=== PATIENT | female | born 1955 | race Caucasian/White ===

== ENCOUNTER 2018-02-07 07:51 | Inpatient (IN) | payer MEDICAID ==
[~2018-02-07] VITALS: Ht 167.6 cm; Wt 99.8 kg
--- NOTE | ~2018-02-07 | OP ---
PATIENT NAME: JOSE MANN MEDICAL RECORD: [id number] :57 LOCATION:D.[facility] [place] ADMISSION DATE:02/07/18 SURGEON: GOLDY WOOD MD DATE OF OPERATION: 02/09/2018 PREOPERATIVE DIAGNOSIS: Multiple symptomatic incisional hernias. POSTOPERATIVE DIAGNOSES: Multiple symptomatic incarcerated incisional hernias with inability to close the midline fascia without employing the bilateral component separation technique. PROCEDURE: Open complex incarcerated incisional hernia repairs with Parietex optimized composite mesh 25 x 20 cm utilizing the bilateral component separation technique. The myofascial release on the left side was 18.5 cm in length and the myofascial release on the right was 22.0 cm in length. SURGEON: GOLDY WOOD MD LIBERAL ARTS DEAN: None. BLOOD LOSS: 200 cc. ANESTHESIA: General. COMPLICATIONS: None. The risks, possible complications and alternatives to procedure were explained to the patient. She elects to proceed. The discussion specifically included, but was not limited to, bleeding requiring an emergency reoperation, infection, reherniation as well as intestinal injury. OPERATIVE COURSE: The patient was conveyed to the operating room electively on 02/09/2018. General anesthesia was induced by the anesthesia staff. The abdomen was sterilely prepped and draped. A midline incision was accomplished. I dissected down to the midline fascia. The peritoneal cavity was entered sharply. Adhesions in the abdomen were taken down with sharp dissection. I ligated the falciform ligament with metallic clips and divided it. I took down the anterior portion of the triangular ligament of the liver. I ensured that all the adhesions in the abdomen had been released. I ran the small bowel from the ligament of Treitz to the ileocecal valve and there was no evidence of a full thickness bowel injury. I excised some attenuated fascia sharply. Subcutaneous flaps were created on top of the rectus fascia on both sides. There was one large hernia defect on the right. I excised the sac. I then closed the fascial defect with multiple interrupted horizontal mattress #1 surgidacs. I tried to approximate the fascia in the midline, I was unable to do so. I went around to the right side and between the anterior superior iliac spine and the right costal margin, a parasagittal incision was accomplished. I dissected down to the external oblique musculature. Utilizing the electrocautery, this was incised in cephalad and caudad direction. I then did perform some blunt dissection deep to the muscle and fascia in cephalad caudad anterior/posterior dimensions. After doing this, I tried to approximate the fascia in the midline and it would not approximate easily. Therefore, I went around to the left side and performed a OPERATIVE REPORT [id number] SEVERENCE,JOSE component separation technique there. As one component separation technique could not allow for closure of the fascia in the midline, the bilateral component separation technique was therefore indicated. Like I did on the right side on the left side, a parasagittal incision was accomplished between the anterior superior iliac spine and the left costal margin. I dissected down to the external oblique aponeurosis and muscle. The muscle was divided. This myofascial release was performed with the electrocautery and the length of the myofascial release is listed above. Again, some blunt dissection was performed in cephalad caudad anterior and posterior directions. After performing a bilateral component separation technique, I was able to approximate the fascia in the midline without tension. A Parietex mesh was then brought onto the sterile field. It was placed in the abdominal cavity with the slick side toward the bowels and the rough side toward the anterior abdominal wall. Utilizing the SecureStrap tacker, I tacked this skirted mesh to the overlying fascia. I ensured that the bowel was not injured and was not trapped between the mesh and the anterior abdominal wall. The fascial closure in the midline was performed over the mesh and this consisted of running looped #1 PDS in a horizontal mattress running fashion. I then overran this fascial closure with a #1 Vicryl. A 19-Korean closed suction drain was brought out through a stab incision lateral to the main incision. In the midline, the subdermis was approximated with interrupted 3-0 Vicryls. Gaye were used deep for the cutaneous closure, all 3 incision sites. The drain was sutured to skin with a 2-0 nylon. Sterile dressings were applied. The patient was then extubated and conveyed to post-anesthesia care unit where she was in stable condition. TRANSINT:[id number] Voice Confirmation ID: [id number] DOCUMENT ID: [id number] CC: Dr. Kimmy Mendoza GOLDY WOOD MD at 1158 CC: DR KIMMY MENDOZA [phone] DICTATION DATE: 02/09/18 1836 TIRE MOLD TESTER: 02/09/18 2144 DIS IN 02/14/18 [address] [place] [address]
[2018-02-07 08:23] LABS: BASOPHILS 0.5 % (0-2); HEMATOCRIT 39.4 % (36.0-48.0); HEMOGLOBIN 13.6 g/dL (12-16); IMMATURE GRANULOCYTES 0.3 % (0-5); LYMPHOCYTES 25.7 % (15-50); MCH 30.2 pg (26.0-34.0); MCHC 34.5 g/dL (31.0-37.0); MCV 87.4 fL (80.0-100.0); MEAN PLATELET VOLUME 11.7 fL (7.4-10.4); MONOCYTES 8.3 % (2-11); NEUTROPHILS 63.2 % (40-80); PLATELET COUNT 216 10x3/uL (130-400); RBC 4.51 10x6/uL (4.00-5.40); RDW 13.9 % (11.5-14.5); WBC 7.5 10x3/uL (4.8-10.8)
[2018-02-07 08:33] LABS: UDS - AMPHET NEGATIVE QUAL (NEGATIVE); UDS - BARB NEGATIVE QUAL (NEGATIVE); UDS - BENZO NEGATIVE QUAL (NEGATIVE); UDS - COCAINE NEGATIVE QUAL (NEGATIVE); UDS - OPIATE NEGATIVE QUAL (NEGATIVE); UDS - PCP NEGATIVE QUAL (NEGATIVE); UDS - THC NEGATIVE QUAL (NEGATIVE)
[2018-02-07 08:41] LABS: ALBUMIN 3.9 g/dL (3.4-5.0); ALKALINE PHOSPHATASE 74 U/L (46-116); ALT (SGPT) 18 U/L (10-68); BILIRUBIN - TOTAL 0.29 mg/dL (0.2-1.3); CALC OSMOLALITY 283 mosm/kg (275-300); CALCIUM 9.1 mg/dL (8.5-10.1); CHLORIDE - SERUM 104 mmol/L (98-107); CREATININE - SERUM 1.1 mg/dL (0.6-1.3); GLUCOSE 101 mg/dL (74-106); POTASSIUM - SERUM 4.3 mmol/L (3.5-5.1); PROTEIN - SERUM 7.8 g/dL (6.4-8.2); SODIUM 141 mmol/L (136-145); UREA NITROGEN 22 mg/dL (7-18); eGFR NON AFRICAN AMERICAN 53 mL/min (90-120)
[2018-02-07 08:46] LABS: APPEARANCE CLEAR (CLEAR); BILIRUBIN NEGATIVE (NEGATIVE); COLOR YELLOW (YELLOW); GLUCOSE NEGATIVE (NEGATIVE); KETONE NEGATIVE (NEGATIVE); NITRITE NEGATIVE (NEGATIVE); PROTEIN 1+ mg/dL (NEGATIVE); UROBILINOGEN NORMAL (NORMAL)
[2018-02-07 08:47] LABS: BACTERIA MODERATE /hpf (NONE SEEN); EPITHELIAL CELLS 0-5 /hpf (0-5); RED CELLS - URINE 0-5 /hpf (0-5); WHITE CELLS - URINE 0-5 /hpf (0-5)
[2018-02-07 08:49] LABS: LIPASE 197 U/L (73-393); PRO BNP 40 pg/mL (0-125)
[2018-02-07 08:50] LABS: TROPONIN-I < 0.017 ng/mL (0.000-0.060)
[2018-02-07] MEDS ORDERED: LISINOPRIL-HCTZ1 T13 PO (12:25)
[2018-02-07] MEDS ORDERED: ZOCOR40 MG PO (12:26)
[2018-02-07 13:19] VITALS: BP 140/88
[2018-02-07 18:06] VITALS: BP 134/85
[2018-02-07 21:53] VITALS: BP 145/79
[2018-02-08 02:51] VITALS: BP 135/91
[2018-02-08 04:58] LABS: BASOPHILS 0.6 % (0-2); EOSINOPHILS 1.5 % (0-7); HEMATOCRIT 35.2 % (36.0-48.0); HEMOGLOBIN 11.7 g/dL (12-16); IMMATURE GRANULOCYTES 0.1 % (0-5); LYMPHOCYTES 26.3 % (15-50); MCH 29.4 pg (26.0-34.0); MCHC 33.2 g/dL (31.0-37.0); MCV 88.4 fL (80.0-100.0); MEAN PLATELET VOLUME 11.5 fL (7.4-10.4); MONOCYTES 6.3 % (2-11); NEUTROPHILS 65.2 % (40-80); PLATELET COUNT 184 10x3/uL (130-400); RBC 3.98 10x6/uL (4.00-5.40); WBC 6.8 10x3/uL (4.8-10.8)
[2018-02-08 05:22] LABS: ALBUMIN 3.1 g/dL (3.4-5.0); ANION GAP 12.8 mmol/L (8-16); BILIRUBIN - TOTAL 0.26 mg/dL (0.2-1.3); CALCIUM 8.4 mg/dL (8.5-10.1); CARBON DIOXIDE 25.3 mmol/L (21.0-32.0); MAGNESIUM - SERUM 2.4 mg/dL (1.8-2.4); POTASSIUM - SERUM 4.1 mmol/L (3.5-5.1); PROTEIN - SERUM 6.4 g/dL (6.4-8.2)
[2018-02-08 08:24] VITALS: BP 139/80
[2018-02-08 12:06] VITALS: BP 140/79
[2018-02-08 16:10] VITALS: BP 128/72
[2018-02-08 21:02] VITALS: BP 167/79
[2018-02-09 01:39] VITALS: BP 163/75
[2018-02-09 06:33] VITALS: BP 128/77
[2018-02-09 09:07] VITALS: BP 108/71
[2018-02-09 12:35] VITALS: BP 115/69
[2018-02-09 19:33] VITALS: BP 108/61
[2018-02-09 21:19] VITALS: BP 94/49
[2018-02-10 00:41] VITALS: BP 95/54
[2018-02-10 04:31] LABS: BASOPHILS 0.1 % (0-2); EOSINOPHILS 0 % (0-7); HEMATOCRIT 32.8 % (36.0-48.0); HEMOGLOBIN 11.1 g/dL (12-16); IMMATURE GRANULOCYTES 0.3 % (0-5); LYMPHOCYTES 8.6 % (15-50); MCH 29.4 pg (26.0-34.0); MCHC 33.8 g/dL (31.0-37.0); MONOCYTES 5.3 % (2-11); NEUTROPHILS 85.7 % (40-80); PLATELET COUNT 180 10x3/uL (130-400); RBC 3.77 10x6/uL (4.00-5.40); RDW 13.6 % (11.5-14.5)
[2018-02-10 04:39] LABS: WBC 10.5 10x3/uL (4.8-10.8)
[2018-02-10 05:01] VITALS: BP 80/42
[2018-02-10 05:25] LABS: ALBUMIN 2.6 g/dL (3.4-5.0); ANION GAP 13.9 mmol/L (8-16); BILIRUBIN - TOTAL 0.42 mg/dL (0.2-1.3); CALCIUM 8.1 mg/dL (8.5-10.1); CREATININE - SERUM 1.1 mg/dL (0.6-1.3); PHOSPHOROUS 4.7 mg/dL (2.5-4.9); POTASSIUM - SERUM 3.9 mmol/L (3.5-5.1); PROTEIN - SERUM 5.6 g/dL (6.4-8.2)
[2018-02-10 05:26] LABS: MAGNESIUM - SERUM 1.7 mg/dL (1.8-2.4)
[2018-02-10 10:27] VITALS: BP 84/45
[2018-02-10 15:27] VITALS: Ht 167.6 cm; Wt 99.8 kg
[2018-02-10 18:18] VITALS: BP 115/64
[2018-02-10 20:44] VITALS: BP 128/68
[2018-02-11] VITALS (7 sets, daily range): BP systolic 101–148; BP diastolic 58–82
[2018-02-12 01:06] VITALS: BP 154/85
[2018-02-12 04:47] VITALS: BP 164/84
[2018-02-12 08:52] VITALS: BP 154/83
[2018-02-12 12:21] VITALS: BP 139/76
[2018-02-12 15:50] VITALS: BP 152/74
[2018-02-12 20:32] VITALS: BP 132/77
[2018-02-13 00:56] VITALS: BP 138/78
[2018-02-13 04:44] VITALS: BP 163/74
[2018-02-13 05:31] LABS: BASOPHILS 0.3 % (0-2); HEMATOCRIT 28.2 % (36.0-48.0); HEMOGLOBIN 9.6 g/dL (12-16); IMMATURE GRANULOCYTES 0.3 % (0-5); LYMPHOCYTES 17.6 % (15-50); MCH 29.4 pg (26.0-34.0); MCV 86.5 fL (80.0-100.0); MEAN PLATELET VOLUME 11.4 fL (7.4-10.4); MONOCYTES 8.3 % (2-11); NEUTROPHILS 69.5 % (40-80); PLATELET COUNT 177 10x3/uL (130-400); RBC 3.26 10x6/uL (4.00-5.40); RDW 13.3 % (11.5-14.5); WBC 7.7 10x3/uL (4.8-10.8)
[2018-02-13 05:54] LABS: ANION GAP 12.9 mmol/L (8-16); CALCIUM 8.2 mg/dL (8.5-10.1); CARBON DIOXIDE 26.3 mmol/L (21.0-32.0); CREATININE - SERUM 0.9 mg/dL (0.6-1.3); POTASSIUM - SERUM 3.2 mmol/L (3.5-5.1)
[2018-02-13 12:43] VITALS: BP 142/80
[2018-02-13] MEDS ORDERED: MIRALAX17 GM PO (13:15)
[2018-02-13] MEDS ORDERED: HYDROCODON-ACE1 EAC7 PO (13:15)
[2018-02-13 16:34] VITALS: BP 146/86
[2018-02-13 20:43] VITALS: BP 163/84
[2018-02-14 01:20] VITALS: BP 95/66
[2018-02-14 09:09] VITALS: BP 168/81
[2018-02-14 12:30] VITALS: BP 122/65
[2018-02-14 15:58] VITALS: BP 131/74
== END 2018-02-14 17:31 | disposition home health service (06) | DRG 355 ==
LOC: D.ER 07:51 → D.EDHOLD 10:41 → D.MS 10:41
PROVIDERS: Family Medicine; Surgery
PROC: 0KNL0ZZ Release Left Abdomen Muscle, Open Approach (ICD-10-PCS; 2018-02-09)
PROC: 0KNK0ZZ Release Right Abdomen Muscle, Open Approach (ICD-10-PCS; 2018-02-09)
PROC: 0WUF0JZ Supplement Abdominal Wall with Synthetic Substitute, Open Approach (ICD-10-PCS; principal; 2018-02-09 11:30)
DX: K43.0 Incisional hernia with obstruction, without gangrene (principal); I10 Essential (primary) hypertension; Z87.891 Personal history of nicotine dependence

== ENCOUNTER 2018-11-20 19:29 | Observation (INO) | payer MEDICAID ==
[~2018-11-20] VITALS: Ht 167.6 cm; Wt 98.2 kg
--- NOTE | ~2018-11-20 | HEMODYNAMI ---
PATIENT:JOSE PAIGE MEDICAL RECORD: [id number] : 57 [id number] ADMISSION DATE: 11/20/18 Generatedon:11/23/20189:28 Patient name: JOSE PAIGE Patient #: [id number] SSN: : 1955 Date of study: 11/23/2018 Page: Of Hemodynamic Procedure Report Patient Data Patient Demographics Procedure consent was obtained First Name: JOSE Gender: Female Last Name: GRECIA : 1955 Patient #: [id number] Age: 63 year(s) Race: Unknown Additional ID: [id number] Contact details [address]: [address] [place] [address] [address] State: [place] City: [facility] Zip code: [address] Admission Admission Data Admission Date: 11/20/2018 Admission Time: 22:42 Room #: D.2118 Lab Results Lab Result Date: 11/23/2018 Lab Result Time: 0:00 Biochemistry Name Units Result Min Max BUN mg/dl 20 --(----)*- 7 18 Creatinine mg/dl 0.8 --(-*--)-- 0.6 1.3 CBC Name Units Result Min Max Hemoglobin g/dl 14.9 --(-*--)-- 13.5 17.5 Procedure Procedure Types Cath Procedure Diagnostic Procedure [facility] w/Coronaries Sedation Charges Moderate Sedation up to 15 minutes PCI Procedure Coronary Stent Coronary Stent Initial Procedure Description Procedure Date Procedure Date: 11/23/2018 Procedure Start Time: 9:04 Procedure End Time: 9:27 Procedure Staff Name Function Paul Gibson MD Performing Physician Lulu Tomlin RT Monitor Duyen Steele RT Scrub Jose Medel RN Nurse Procedure Data Cath Procedure Fluoroscopy Diagnostic fluoroscopy Total fluoroscopy Time: 6.6 time: 6.6 min min Diagnostic fluoroscopy Total fluoroscopy dose: dose: 1255 mGy 1255 mGy Contrast Material Contrast Material Type Amount (ml) Isovue 300 86 Entry Location Entry Primary Successful Side Size Upsize Upsize Entry Closure Rivera ccessful Closure Location (Fr) 1 (Fr) 2 (Fr) Remarks Device Remarks Radial Right 6 Fr Mechanical artery Short Compression Estimated blood loss: 5 ml Diagnostic catheters Device Type Used For End Catheter Placement DIAGNOSTIC [place] 110cm 5 Multi-vessel Fr catheter ([id number]) Angiography Procedure Complications No complications Procedure Medications Medication Administration Route Dosage 0.9% NaCl I.V. 100 ml/hr Versed I.V. 2 mg Fentanyl I.V. 100 mcg Oxygen etCO2 Nasal cannula Radial Cocktail added to field 1 syringe (Verapomil 2mg/Nitro 400mcg/Heparin 1500units) Radial Cocktail I.A. 1 syringe (Verapomil 2mg/Nitro 400mcg/Heparin 1500units) Heparin Flush Bag added to field 2 bags (1000units/500ml NS) Lidocaine 2% added to field 20 Heparin Bolus I.V. 9800 units Plavix P.O. 600 mg Hemodynamics Rest HGB: 14.9 (g/dl) Heart Rate: 69 (bpm) Pressure Samples Time Site Value (mmHg) Purpose Heart Use Rate(bpm) 9:08 LV 140/7,20 Snapshot 79 9:09 AO 101/63(80) Pullback 78 9:09 LV 125/2,13 Pullback 78 Gradients Valve Time Site 1 Site 2 Mean SEP/DFP Peak To Heart Use (mmHg) (sec/min) Peak Rate (mmHg) (bpm) Aortic 9:09 LV AO 18 23 24 78 125/2,13 101/63(80) Calculations Valve P-P Mean Valve Index Valve Source Name Gradient Area Flow (cm2) Aortic 24 18 24 18 Snapshots Pre Cath Intra NCS Post Cath Vital Signs Time Heart Resp SPO2 etCO2 NIBP (mmHg) Rhythm Pain Sedation Rate (ipm) (%) (mmHg) Status Level (bpm) 8:54:07 71 10 92 0 156/101(135) NSR 0 (11) 10(A) , No pain 8:58:21 71 16 91 0 165/97(140) NSR 0 (11) 10(A) , No pain 9:02:40 77 14 92 0 164/108(141) NSR 0 (11) 10(A) , No pain 9:06:56 78 13 92 35 126/86(102) NSR 0 (11) 10(A) , No pain 9:11:04 72 17 93 29.1 120/83(112) NSR 0 (11) 9(A) , No pain 9:15:11 70 18 92 20.1 124/76(106) NSR 0 (11) 9(A) , No pain 9:19:21 64 16 92 38 121/74(116) NSR 0 (11) 9(A) , No pain 9:23:29 69 18 91 0 126/77(99) NSR 0 (11) 9(A) , No pain 9:27:41 70 9 92 23.8 127/71(106) NSR 0 (11) 9(A) , No pain Medications Time Medication Route Dose Verified Delivered Reason Note s Effectiveness by by 9:05:02 0.9% NaCl I.V. 100 Jose Jose Per physician ml/hr Lizy Medel RN RN 9:05:14 Versed I.V. 2 mg Jose Jose for sedation Lizy Medel RN RN 9:05:22 Fentanyl I.V. 100 mcg Jose Jose for sedation Lizy Medel RN RN 9:05:32 Oxygen etCO2 Jose Jose Per physician Nasal Lizy Medel cannula RN RN 9:07:21 Radial Cocktail added 1 Jose Jose used for (Verapomil to syringe Lorigan Lorigan procedure 2mg/Nitro RN RN 400mcg/Heparin 1500units) 9:07:27 Radial Cocktail I.A. 1 Jose Paul for (Verapomil syringe Lizy Gibson MD vasodilation 2mg/Nitro RN 400mcg/Heparin 1500units) 9:08:02 Heparin Flush added 2 bags Jose Jose used for Bag to Lorigan Lorvanesa procedure (1000units/500ml RN RN NS) 9:08:13 Lidocaine 2% added 20ml Jose Jose for local to vial Lorigan Lizy anesthetic RN RN 9:19:14 Heparin Bolus I.V. 9,800 Jose Jose for units Lorigan Lizy anticoagulation RN RN 9:26:25 Plavix P.O. 600 mg Jose Jose for Lorigan Lizy antiplatelet RN RN therapy Procedure Log Time Note 7:35:16 Informed consent obtained and on chart 7:35:23 Diagnostic Cath Status : Elective 7:35:53 Elissa Saxena RN sent for patient. Start room use. 7:35:54 Time tracking: Regular hours (M-F 7:00 - 5:00) 7:35:58 Plan of Care:Hemodynamics will remain stable., Cardiac rhythm will remain stable., Comfort level will be maintained., Respiratory function will remain adequate., Patient/ family verbilizes understanding of procedure., Procedure tolerated without complication., Recovers from procedure without complications.. 8:51:37 Patient received from Med II to CCL 2 Alert and oriented. Tansferred to table in Supine position. 8:53:05 Warm blankets applied, and makayla hugger turned on for patient comfort. 8:53:05 Correct patient and procedure confirmed by team. 8:53:06 ECG and BP/O2 sat monitors applied to patient. 8:53:07 Vital chart was started 8:53:08 Baseline sample Acquired. 8:53:12 Rhythm: sinus rhythm 8:53:14 Full Disclosure recording started 8:53:22 H&P Date Dictated: 11/23/2018 New H&P dictated by physician.. 8:53:24 Pre-procedure instructions explained to patient. 8:53:24 Pre-op teaching completed and patient verbalized understanding. 8:53:25 Family in waiting room. 8:53:26 Patient NPO since Midnight. 8:53:28 Is the patient allergic to Iodine/contrast media? No. 8:53:29 Was the patient premedicated? No 8:53:33 Is patient on blood thinner?No 8:53:34 Patient diabetic? No. 8:53:49 Previous problem with sedation/anesthesia? No ? 8:53:51 Snore? Yes 8:53:52 Sleep apnea? No 8:53:53 Deviated septum? No 8:53:54 Opens mouth fully? Yes 8:53:54 Sticks out tongue? Yes 8:53:56 Airway obstruction? No ? 8:53:59 Dentures? No ? 8:54:02 Pre procedure: right dorsailis pedis pulse 1+ Palpable, but thready & weak; easily obliterated 8:54:04 Pre procedure: left dorsailis pedis pulse 1+ Palpable, but thready & weak; easily obliterated 8:54:08 Patient pain scale 0/10 ?. 8:54:25 IV right forearm D/C'd due to infiltration. 8:57:40 IV started by Jose Medel RN inleft forearm with a 20 gauge IV catheter with 0.9% NaCl at KVO. 8:57:43 Lab results completed and on chart. 8:57:47 Right Radial & Right Groin area was prepped with chlora-prep and draped in sterile fashion 8:57:48 Alarms reviewed by R. N. 8:57:48 Sharps counted by scrub and verified by R.N. 8:58:33 Lab Result : Hemoglobin 14.9 g/dl 8:58:33 Lab Result : Creatinine 0.8 mg/dl 8:58:33 Lab Result : BUN 20 mg/dl 9:04:14 Physician arrived 9:04:14 --------ALL STOP TIME OUT------ 9:04:15 Final Timeout: patient, procedure, and site verified with staff and physician. All members of the team are in agreement. 9:04:16 Right Radial & Right Groin site verified by team. 9:04:19 Physical assessment completed. ASA score P 2 - A patient with mild systemic disease as per Paul Gibson MD. 9:04:24 Sedation plan: IV Moderate Sedation Medication:Versed, Fentanyl 9:04:29 Procedure started. 9:04:35 Local anesthetic to right radial artery with Lidocaine 2% by Paul Gibson MD.INITIAL ACCESS ONLY 9:04:37 Use device set Radial Dx or PCI 9:04:38 ACIST Syringe (03219) opened to sterile field. 9:04:39 Medline Cath Pack ([id number]) opened to sterile field. 9:04:39 Bag Decanter () opened to sterile field. 9:04:39 DIAGNOSTIC WIRE .035 260cm J wire (401650) opened to sterile field. 9:04:40 ACIST Hand Control (08442) opened to sterile field. 9:04:40 ACIST Manifold (53328) opened to sterile field. 9:04:41 Tegaderm 4 x 4 (1626W) opened to sterile field. 9:04:41 MBrace Wrist Support ([id number]) opened to sterile field. 9:04:43 SHEATH 6FR Slender (25-0908) opened to sterile field. 9:04:43 NEEDLE Cook 21G 4cm Radial (L31211) opened to sterile field. 9:05:02 0.9% NaCl 100 ml/hr I.V. was administered by Jose Medel RN; Per physician; 9:05:14 Versed 2 mg I.V. was administered by Jose Medel RN; for sedation; 9:05:22 Fentanyl 100 mcg I.V. was administered by Jose Medel RN; for sedation; 9:05:32 Oxygen etCO2 Nasal cannula was administered by Jose Medel RN; Per physician; 9:05:59 A 6 Fr Short sheath was inserted into the Right Radial artery 9:06:33 A DIAGNOSTIC [place] 110cm 5 Fr catheter (626136) was advanced over the wire and used for Multi-vessel Angiography. 9:07:16 Zero performed for pressure channel P1 9:07:21 Radial Cocktail (Verapomil 2mg/Nitro 400mcg/Heparin 1500units) 1 syringe added to field was administered by Jose Medel RN; used for procedure; 9:07:26 Zero performed for pressure channel P1 9:07:27 Radial Cocktail (Verapomil 2mg/Nitro 400mcg/Heparin 1500units) 1 syringe I.A. was administered by Paul Gibson MD; for vasodilation; 9:07:45 Zero performed for pressure channel P1 9:07:51 Zero performed for pressure channel P1 9:08:02 Heparin Flush Bag (1000units/500ml NS) 2 bags added to field was administered by Jose Medel RN; used for procedure; 9:08:13 Lidocaine 2% 20ml vial added to field was administered by Jose Medel RN; for local anesthetic; 9:08:23 Zero performed for pressure channel P1 9:08:54 LV hemodynamics recorded. 9:08:55 LV gram done using BOYD 9:08:57 Injector settings: Ml/sec: 5, Volume: 15, 9:09:11 EF : 50 % 9:10:11 LCA angiography performed. 9:10:17 Injector settings: Ml/sec: 3, Volume: 6, 9:11:15 RCA angiography performed. 9:11:18 Injector settings: Ml/sec: 3, Volume: 6, 9:12:43 Catheter removed. 9:12:44 Proceeding to intervention. 9:13:07 INFLATOR Merit BasixCompak (TQ8110) opened to sterile field. 9:13:08 GUIDE 6FR XBLAD 3.5 catheter ([id number]) opened to sterile field. 9:13:09 BMW 300cm [place] 2 J wire ([id number]) opened to sterile field. 9:13:28 6 Fr xblad 3.5 guide catheter was inserted over the wire 9:19:14 Heparin Bolus 9,800 units I.V. was administered by Jose Medel RN; for anticoagulation; 9:: bmw wire advanced. 9::28 Wire advanced across lesion. 9:24:21 Place stent Inflation Number: 1 A INTEGRITY OTW 3.5 X 15 stent ([id number]) was prepped and advanced across the Prox CX. The stent was deployed at 12 DANNIE for 0:10 (min:sec). 9:24:56 Stent catheter was removed intact over wire. 9:24:57 Wire removed. 9:24:57 Guide catheter removed. 9:25:36 TR BAND Standard ([id number]) opened to sterile field. 9:25:47 Sheath removed intact; hemostasis achieved with Mechanical Compression to the Right Radial artery. 9:25:49 Procedure ended.(Physican Out) 9:26:20 Fluoroscopy time 06.60 minutes. 9:26:24 Flurop Dose total: 1255 9:26:24 Fluoroscopy dose: 1255 mGy 9:26:25 Plavix 600 mg P.O. was administered by Jose Medel RN; for antiplatelet therapy; 9::28 Contrast amount:Isovue 300 86ml. 9:26:30 Sharps counted by scrub and verified by R.N. 9:26:32 TR band inflated with 10cc of air. 9:26:33 Insertion/operative site no bleeding no hematoma. 9:26:38 Post right radial artery:stable 9:26:42 Post procedure rhythm: unchanged. 9:26:45 Estimated blood loss: 5 ml 9::47 Post procedure instruction explained to patient.Patient verbalizes understanding. 9::47 Patient needs reinforcement of post procedure teaching. 9:26:58 Procedure type changed to Cath procedure, Diagnostic procedure, LHC, LHC w/Coronaries, Sedation Charges, Moderate Sedation up to 15 minutes, PCI procedure, Coronary Stent, Coronary Stent Initial 9:26:59 Procedure and supply charges have been captured, reviewed, submitted and are correct. 9:27:03 Procedure Complication : No complications 9:27:07 Vital chart was stopped 9:27:08 See physician's report for complete and final results. 9:27:27 Report given to [facility]. 9:27:30 Patient transfered to [facility] with Stretcher. 9:27:32 Procedure ended. 9:27:32 Full Disclosure recording stopped 9:27:41 ACC-PCI Only Patient was given prescriptions, or instructed by Paul Gibson MD to start/continue the following medications upon discharge: Plavix 9:27:42 End room use (Document Last) Intervention Summary Intervention Notes Time ActionType Lesion and Equipment Action# Pressure Duration Attributes Used 9:24:21 Place stent Prox CX INTEGRITY 1 12 00:10 OTW 3.5 X 15 stent ([id number]) Device Usage Item Name Manufacture Quantity Catalog Hospital Part Current Minimal Lot# / Number Charge Number Stock Stock Serial# Code ACIST Acist 1 37091 875011 172808 447675 20 Syringe Medical (55505) Systems Inc Medline Medline 1 [id number] 754608 29716 991086 5 Cath Pack ([id number]) Bag Microtek 1 2001S 765196 51294 823257 5 Decanter Medical Inc. () DIAGNOSTIC St [place] 1 634398 126005 636126 192857 30 WIRE .035 260cm J wire (613145) ACIST Hand Acist 1 74781 373046 784165 018852 5 Control Medical (43063) Systems Inc ACIST Acist 1 76630 209481 886101 739397 5 Manifold Medical (14160) Systems Inc Tegaderm 4 3M 1 1626W 905257 060650 474043 5 x 4 (1626W) MBrace Advanced 1 140-0250-00 596022 46668 240854 5 Wrist Vascular Support Dynamics ([id number]) SHEATH 6FR Terumo 1 [id number] 701156 359124 568181 5 Slender (80-1060) NEEDLE Clearwell Systems Medical 1 F58696 127236 809824 376334 5 21G 4cm Radial (W83740) DIAGNOSTIC Terumo 1 40-0983 110356 011764 101218 5 [place] 110cm 5 Fr catheter (648059) INFLATOR Merit 1 CM2098 904196 923734 909070 15 [facility] Medical BasixCompak (QD6091) GUIDE 6FR Cardinal 1 [id number] 117101 955166 000590 10 XBLAD 3.5 Health catheter (50697801) BMW 300cm Springer 1 [id number] 721482 160590 451201 5 [place] 2 Vascular J wire (2646522Q) INTEGRITY Medtronic 1 [id number] 077406 099550 911515 6 [id number] OTW 3.5 X 15 stent ([id number]) TR BAND Terumo 1 [id number] 829687 759599 071211 40 Standard ([id number]) Signature Audit [place] Stage Time Signature Unsigned Intra-Procedure 11/23/2018 Duyen Cedric 9:28:46 AM RT(R) Signatures Monitor : Lulu Tomlin Signature : RT Date : Time : [place] [id number] [place] [address]
[~2018-11-20 19:29] MED LIST: HYDROCODON-ACE1 EAC7 PO; LISINOPRIL-HCTZ1 T13 PO; MIRALAX17 GM PO; ZOCOR40 MG PO
[2018-11-20 20:22] LABS: BASOPHILS 0.3 % (0-2); HEMATOCRIT 45.1 % (36.0-48.0); HEMOGLOBIN 15.9 g/dL (12-16); IMMATURE GRANULOCYTES 0.3 % (0-5); LYMPHOCYTES 17.2 % (15-50); MCH 30.9 pg (26.0-34.0); MCHC 35.3 g/dL (31.0-37.0); MCV 87.6 fL (80.0-100.0); MEAN PLATELET VOLUME 10.9 fL (7.4-10.4); MONOCYTES 5.7 % (2-11); NEUTROPHILS 75.5 % (40-80); PLATELET COUNT 178 10x3/uL (130-400); RBC 5.15 10x6/uL (4.00-5.40); RDW 14.9 % (11.5-14.5); WBC 11.8 10x3/uL (4.8-10.8)
[2018-11-20 20:26] LABS: APTT 29.8 SECONDS (22.8-39.4); PROTIME 12.7 SECONDS (11.6-15.0)
[2018-11-20 20:39] LABS: ALBUMIN 3.6 g/dL (3.4-5.0); ALKALINE PHOSPHATASE 70 U/L (46-116); ALT (SGPT) 20 U/L (10-68); BILIRUBIN - TOTAL 0.24 mg/dL (0.2-1.3); CALC OSMOLALITY 286 mosm/kg (275-300); CARBON DIOXIDE 24.2 mmol/L (21.0-32.0); CHLORIDE - SERUM 103 mmol/L (98-107); CREATININE - SERUM 1.1 mg/dL (0.6-1.3); GLUCOSE 130 mg/dL (74-106); POTASSIUM - SERUM 3.2 mmol/L (3.5-5.1); PROTEIN - SERUM 7.3 g/dL (6.4-8.2); SODIUM 140 mmol/L (136-145); UREA NITROGEN 28 mg/dL (7-18); eGFR NON AFRICAN AMERICAN 53 mL/min (90-120)
[2018-11-20 21:00] LABS: CREATINE KINASE 117 UL (21-215); MAGNESIUM - SERUM 2.1 mg/dL (1.8-2.4); TROPONIN-I < 0.017 ng/mL (0.000-0.060)
--- NOTE | 2018-11-20 23:41 | NUR ---
PT ARRIVED VIA W/C FROM ER WITH DX. CP. NO DISTRESS NOTED. SR PER CM HR 99. INFORMED PT NPO AFTER MIDNIGHT UNTIL SEEN BY DR CHISHOLM IN AM. PT STATED UNDERSTANDING. SANDWICH GIVEN TO PT. CALL LIGHT WITHIN REACH.
[2018-11-20 23:56] VITALS: BP 157/82; Ht 167.6 cm; Wt 98.2 kg
--- NOTE | 2018-11-21 00:11 | NUR ---
ADMISSION ASSESSMENT, HISTORY AND HOME MED LIST COMPLETED. VSS. IV TO LAC SL. LUNGS CTA. HAS C/O PAIN 2/10 TO L ARM AND NECK THAT HAS INTERMITTENT SQUEEZING. WILL CONTINUE TO MONITOR. SR UP X2, CALL LIGHT WITHIN REACH.
[2018-11-21 00:38] VITALS: BP 157/82
--- NOTE | 2018-11-21 01:42 | NUR ---
PT RESTING WITH EYES CLOSED. RESP EVEN AND REGULAR. SR UP X2, CALL LIGHT WITHIN REACH.
--- NOTE | 2018-11-21 04:19 | NUR ---
PT RESTING WITH EYES CLOSED. RESP EVEN AND REGULAR. SR UP X2, CALL LIGHT WITHIN REACH.
[2018-11-21 04:29] VITALS: BP 133/82
--- NOTE | 2018-11-21 05:59 | NUR ---
VSS. SR PER CM. PT CURRENTLY RESTING WITH EYES CLOSED. RESP EVEN AND REGULAR. SR UP X2, CALL LIGHT WITHIN REACH.
--- NOTE | 2018-11-21 07:30 | NUR ---
RESTING QUIETLY EYES CLOSED RESP UNLABORED NAD NOTED
[2018-11-21 08:40] VITALS: BP 220/110
[2018-11-21 10:50] VITALS: BP 136/77
[2018-11-21 21:32] VITALS: BP 134/71
--- NOTE | 2018-11-21 21:51 | NUR ---
INITIAL ORUNDS COMPELTED AT 1910 HRS. PT STATED HER HIPS WERE BOTHERING HER. STATED NAPROXEN HELPED SOME. ASSESSMENT COMPLETED AT 1999 HRS. VSS. LUNGS CTA. SR PER CM HR 82. IV TO LAC REMOVED WITH CATHETER INTACT PER PT'S INSISTANCE. REFUSES ANOTHER IV. ALERT AND ORIENTEDE TO PERSON, PLACE AND TIME. GAIT EVEN AND STEADY. PM MED GIVEN. PT CURRENTLY RESTING WITH EYES CLOSED. RESP EVEN AND REGULAR. SR UP X2,CALL LIGHT WITHIN REACH.
[2018-11-21 23:55] VITALS: BP 129/70
--- NOTE | 2018-11-22 00:08 | NUR ---
PT RESTING WITH EYES CLOSED. RESP EVEN AND REGULAR. SR UP X2, CALL LIGHT WITHIN REACH.
--- NOTE | 2018-11-22 02:12 | NUR ---
PT RESTING WITH EYES CLOSED. RESP EVEN AND REGULAR. SR UP X2, CALL LIGHT WITHIN REACH .
[2018-11-22 03:55] VITALS: BP 144/73
--- NOTE | 2018-11-22 04:59 | NUR ---
PT AWAKE; DENIES ANY DISCOMFORT. CALL LIGHT WITHIN REACH.
--- NOTE | 2018-11-22 05:39 | NUR ---
VSS THROUGHOUT NIGHT. SR PER CM. PT DENIED ANY CP OR PRESSURE. NEEDS MET; WILL CONTINUE TO MONITOR.
[2018-11-22 07:13] LABS: BASOPHILS 0.4 % (0-2); EOSINOPHILS 1.7 % (0-7); HEMATOCRIT 42.9 % (36.0-48.0); HEMOGLOBIN 14.9 g/dL (12-16); IMMATURE GRANULOCYTES 0.4 % (0-5); LYMPHOCYTES 22.3 % (15-50); MCH 30.3 pg (26.0-34.0); MCHC 34.7 g/dL (31.0-37.0); MCV 87.2 fL (80.0-100.0); MEAN PLATELET VOLUME 11.3 fL (7.4-10.4); MONOCYTES 7.7 % (2-11); NEUTROPHILS 67.5 % (40-80); PLATELET COUNT 188 10x3/uL (130-400); RBC 4.92 10x6/uL (4.00-5.40); RDW 14.7 % (11.5-14.5); WBC 11.1 10x3/uL (4.8-10.8)
[2018-11-22 07:41] LABS: ALBUMIN 3.2 g/dL (3.4-5.0); ALKALINE PHOSPHATASE 61 U/L (46-116); ALT (SGPT) 17 U/L (10-68); CALC OSMOLALITY 280 mosm/kg (275-300); CALCIUM 8.4 mg/dL (8.5-10.1); CARBON DIOXIDE 22.6 mmol/L (21.0-32.0); CHLORIDE - SERUM 104 mmol/L (98-107); CREATININE - SERUM 0.8 mg/dL (0.6-1.3); GLUCOSE 98 mg/dL (74-106); MAGNESIUM - SERUM 2.1 mg/dL (1.8-2.4); POTASSIUM - SERUM 3.9 mmol/L (3.5-5.1); PROTEIN - SERUM 6.6 g/dL (6.4-8.2); SODIUM 139 mmol/L (136-145); THYROID STIMULATING HORMONE 2.49 uIU/mL (0.36-3.74); UREA NITROGEN 20 mg/dL (7-18); eGFR NON AFRICAN AMERICAN 77 mL/min (90-120)
--- NOTE | 2018-11-22 08:22 | NUR ---
PT UP IN RECLINER EATING BREAKFAST. NO CONCERNS/COMPLAINTS. OK WITH GOING HOME TODAY BUT NEEDS TO KNOW EARLY POSSIBLE IF SO. STATE HER RIDE IS BIPOLAR? NOT SURE WHAT THAT HAS TO DO WITH IT BUT APARENTLY IT'S RELEVANT. CL IN REACH. SRX2
[2018-11-22 09:40] VITALS: BP 160/105
--- NOTE | 2018-11-22 10:40 | NUR ---
RESTING QUIETLY NAD NOTED SR RATE 90 ON MONITOR
[2018-11-22 14:30] VITALS: BP 143/95
[2018-11-22 17:53] VITALS: BP 146/85
--- NOTE | 2018-11-22 18:04 | NUR ---
PT LYING IN BED WATCHING TV. NO CCONERNSOR COMPLAINTS AT THIS TIME. CL IN REACH. SRX2.
[2018-11-22 20:00] VITALS: BP 162/78
--- NOTE | 2018-11-22 20:00 | NUR ---
INITIAL ROUNDS AND ASSESSMENT COMPLETED. PT REGAN BE NPO AFTER MIDNIGHT FOR AM HEART CATH. ALERT/ORIENTED. MONITOR AND CPOC.
--- NOTE | 2018-11-22 23:00 | NUR ---
BED TIME MEDS GIVEN. PT RESTING WITH NO DISTRESS.
[2018-11-23] VITALS: BP 152/86
--- NOTE | 2018-11-23 01:04 | NUR ---
PT NPO. ALL FLUIDS/DRINKS REMOVED FROM BEDSIDE.
[2018-11-23 04:00] VITALS: BP 173/88
[2018-11-23 06:24] LABS: BASOPHILS 0.4 % (0-2); EOSINOPHILS 2.1 % (0-7); HEMATOCRIT 44.9 % (36.0-48.0); HEMOGLOBIN 15.6 g/dL (12-16); IMMATURE GRANULOCYTES 0.4 % (0-5); LYMPHOCYTES 25.2 % (15-50); MCH 30.3 pg (26.0-34.0); MCHC 34.7 g/dL (31.0-37.0); MCV 87.2 fL (80.0-100.0); MEAN PLATELET VOLUME 11.3 fL (7.4-10.4); MONOCYTES 7.1 % (2-11); NEUTROPHILS 64.8 % (40-80); PLATELET COUNT 190 10x3/uL (130-400); RBC 5.15 10x6/uL (4.00-5.40); RDW 14.5 % (11.5-14.5); WBC 9.5 10x3/uL (4.8-10.8)
[2018-11-23 06:59] LABS: ALBUMIN 3.3 g/dL (3.4-5.0); ANION GAP 15.5 mmol/L (8-16); BILIRUBIN - TOTAL 0.45 mg/dL (0.2-1.3); CALCIUM 8.7 mg/dL (8.5-10.1); CARBON DIOXIDE 24.6 mmol/L (21.0-32.0); MAGNESIUM - SERUM 2.2 mg/dL (1.8-2.4); POTASSIUM - SERUM 4.1 mmol/L (3.5-5.1)
[2018-11-23 08:37] VITALS: BP 140/80
--- NOTE | 2018-11-23 08:41 | NUR ---
PRE-OPS GIVEN. TO SINGLE PASS SOIL STABILIZER OPERATOR BY BED.
--- NOTE | 2018-11-23 09:51 | NUR ---
BACK FROM GROUND EQUIPMENT MECHANIC. VS WNL. RIGHT WRIST STABLE WITH TR BAND INTACT. WILL MONITOR.
[2018-11-23 11:28] VITALS: BP 133/81
[2018-11-23 15:43] VITALS: BP 144/85
--- NOTE | 2018-11-23 19:37 | NUR ---
RESUMED CARE OF PT, LYING IN BED RESPIRATIONS EVEN AND UNLABORED ON ROOM AIR. 82 SR ON TELEMETRY. LEFT FOREARM SALINE LOCKED. RIGHT WRIST, C/D/I. SEE NURSE ASSESSMENT. CALL LIGHT IN REACH.
[2018-11-23 20:00] VITALS: BP 131/60
[2018-11-24] VITALS: BP 141/88
[2018-11-24 04:00] VITALS: BP 126/82
[2018-11-24 05:30] LABS: BASOPHILS 0.4 % (0-2); EOSINOPHILS 2.6 % (0-7); HEMATOCRIT 43.8 % (36.0-48.0); IMMATURE GRANULOCYTES 0.4 % (0-5); LYMPHOCYTES 18.6 % (15-50); MCH 29.9 pg (26.0-34.0); MCHC 34.2 g/dL (31.0-37.0); MCV 87.3 fL (80.0-100.0); MEAN PLATELET VOLUME 10.5 fL (7.4-10.4); MONOCYTES 7.6 % (2-11); NEUTROPHILS 70.4 % (40-80); PLATELET COUNT 182 10x3/uL (130-400); RBC 5.02 10x6/uL (4.00-5.40); RDW 14.3 % (11.5-14.5); WBC 9.5 10x3/uL (4.8-10.8)
[2018-11-24 06:01] LABS: ALBUMIN 3.1 g/dL (3.4-5.0); ANION GAP 14.1 mmol/L (8-16); BILIRUBIN - TOTAL 0.41 mg/dL (0.2-1.3); CALCIUM 8.6 mg/dL (8.5-10.1); CARBON DIOXIDE 23.8 mmol/L (21.0-32.0); MAGNESIUM - SERUM 2.1 mg/dL (1.8-2.4); POTASSIUM - SERUM 3.9 mmol/L (3.5-5.1); PROTEIN - SERUM 6.5 g/dL (6.4-8.2)
[2018-11-24 08:00] VITALS: BP 140/85
[2018-11-24] MEDS ORDERED: PLAVIX75 MG PO (08:13)
[2018-11-24] MEDS ORDERED: LISINOPRIL10 MG PO (08:13)
[2018-11-24] MEDS ORDERED: PROTONIX40 MG PO (08:13)
[2018-11-24 12:06] VITALS: BP 140/46
--- NOTE | 2018-11-24 12:21 | NUR ---
IV AND TELEMETRY DCD. DC PLANS GIVEN. UNDERSTANDING VOICED. ASSISTANT KITCHEN MANAGER TO ASSIST WITH CHANGING PHARMACYS AND DILIP FROM DR. RIVERA OFFICE TO ASSIST WITH SAMPLES OF [place]. WILL CONT. PLAN OF CARE.
--- NOTE | 2018-11-24 12:42 | NUR ---
WILL MACHINIST APPRENTICE PLAVIX AT PHARMACY IN . DILIP NOTIFIED NOT TUCKERCARY TO BRING EDIN PEGGYPALMIRA. ESCORTED TO CAR BY W/C.
--- NOTE | 2018-11-24 15:14 | MORECARE ---
CASE MANAGEMENT DISCHARGE SUMMARY PATIENT: JOSE PAIGE UNIT: [id number] ADM DATE: 11/20/18 AGE: 63 : 57 SEX: F ROOM/BED: D.[facility]8 AUTHOR: YON POTTER PHYSICIAN: REFERRING PHYSICIAN: MELISSA BOLIVAR DO DATE OF SERVICE: 11/24/18 Discharge Plan Patient Name: JOSE PAIGE [facility] : 1955 Planned Disposition: Home Anticipated Discharge Date: 11/24/18 Discharge Date: 11/24/2018 Expected LOS: 4 Initial Reviewer: [email or web address] Initial Review Date: 11/24/2018 Generated: 11/24/18 4:14 pm DCPIA - Discharge Planning Initial Assessment Updated by [email or web address]: Suresh Alfaro on 11/24/18 3:06 pm * Is the patient Alert and Oriented? Yes * How many steps to enter\exit or inside your home? * PCP NONE * Pharmacy [facility] * Preadmission Environment Home Alone * ADLs Independent * Equipment Cane Walker * Other Equipment NO MEDICAL EQUIPMENT PROVIDER PREFERENCE * List name and contact numbers for known caregivers / representatives who currently or will assist patient after discharge: GIRMA JAPANESE, FRIEND, * Verbal permission to speak to the caregivers and representatives has been obtained from the patient. N/A * Community resources currently utilized None * Please name any agencies selected above. NONE * Additional services required to return to the preadmission environment? No * Can the patient safely return to the preadmission environment? Yes * Has this patient been hospitalized within the prior 30 days at any hospital? No Patient Name: JOSE PAIGE Page [id number] at 1514 All edits/amendments must be made on the electronic document DICTATION DATE: 11/24/181512 SPRUE KNOCKER: AINSLEY 11/24/181512 RPT#: [id number] DC DATE:11/24/18 STATUS: DIS IN [address] [place] [address] END OF REPORT
--- NOTE | 2018-11-24 15:24 | MORECARE ---
CASE MANAGEMENT DISCHARGE SUMMARY PATIENT: JOSE PAIGE UNIT: [id number] ADM DATE: 11/20/18 AGE: 63 : 57 SEX: F ROOM/BED: D.1044 AUTHOR: ABBEY,DOC PHYSICIAN: REFERRING PHYSICIAN: MELISSA BOLIVAR DO DATE OF SERVICE: 11/24/18 Discharge Plan Patient Name: JOSE PAIGE Facility: [facility]:[place] : 1955 Planned Disposition: Home Anticipated Discharge Date: 11/24/18 Discharge Date: 11/24/2018 Expected LOS: 4 Initial Reviewer: [email or web address] Initial Review Date: 11/24/2018 Generated: 11/24/18 4:24 pm Comments DCP- Discharge Planning Updated by [email or web address]: Suresh Alfaro on 11/24/18 2:[address] Patient Name: JOSE PAIGE Admission Status: ER Accout number: [id number] Admission Date: 11-20-2018 : 1955 Admission Diagnosis: Attending: MELISSA BOLIVAR Current LOS: 4 Anticipated DC Date: 11-24-2018 Planned Disposition: Home Primary Insurance: [facility] PRIVATE OPTIONS LEIGH Discharge Planning Comments: CM SPOKE TO BEDSIDE NURSE WHO INFORMED CM THAT PT IS NOT ABLE TO AFFORD PLAVIX MEDICATION. CM MET WITH PT IN ROOM TO DISCUSS DISCHARGE PLANNING AND NEEDS. PT REPORTS LIVING AT HOME INDEPENDENTLY AND ALONE. PT HAS CANE AND WALKER WITH NO MEDICAL EQUIPMENT PROVIDER PREFERENCE. PT HAS NO OUTSIDE SERVICES ASSISTING IN THE HOME. CM DISCUSSED AVAILABILITY OF HOME HEALTH, REHAB SERVICES AND MEDICAL EQUIPMENT. PT STATES SHE CAN AFFORD HER MEDICATION, SHE HAS NO RIDE TO [facility] [place] IT UP. PT HAS NOT LIVED CLOSE TO [facility] IN ABOUT ONE YEAR. PT JUST MOVED TO [place] FROM [place]. PT'S FRIEND WILL NOT TAKE HER TO [place] THE MEDICATIONS NEEDED IN THE [facility] BECAUSE IT IS AN HOUR THERE AND AN HOUR BACK. PT TEARFUL REPORTING NOT HAVING ANYONE ELSE TO HELP. PT HAS CALLED HER INSURANCE COMPANY THAT CAN TAKE HER TO MEDICAL APPOINTMENTS, BUT NOT TO PHARMACY. CM ASKED PT IF IT WOULD BE OK TO CHANGE HER [facility] IN [place]. PT IN AGREEMENT AND HAS NOT THOUGHT OF THIS OPTION. CM ASSISTED PT IN CALLING [facility] ON [place] AND HAVING HER PRESCRIPTIONS SENT THERE. PT REPORTS HER FRIEND WILL TAKE HER THERE AND THEN HOME. CM CALLED PT'S DIRECTOR OF PSYCHOLOGY, MARIA LEENA JOSÉ, , DISCUSSED PT'S CIRCUMSTANCES AND NOTIFIED HER OF PT NOT HAVING A VERY GOOD SYSTEM OF SUPPORT. MARIA ELENA WILL CONTACT THE PT TODAY AND ASK IF PT WILL CONSENT TO COMMUNITY CASE MANAGEMENT WITH INSURANCE COMPANY. PT DENIES DISCHARGE NEEDS, REPORTS HER FRIEND WILL PICK HER UP FOR DISCHARGE HOME. BEDSIDE NURSE NOTIFIED. Therapist: Suresh Alfaro DCPIA - Discharge Planning Initial Assessment Updated by [email or web address]: Suresh Alfaro on 11/24/18 3:06 pm * Is the patient Alert and Oriented? Yes * How many steps to enter\exit or inside your home? * PCP NONE * Pharmacy [facility] * Preadmission Environment Home Alone * ADLs Independent * Equipment Cane Walker * Other Equipment NO MEDICAL EQUIPMENT PROVIDER PREFERENCE * List name and contact numbers for known caregivers / representatives who currently or will assist patient after discharge: GIRMA PIERCE, FRIEND, * Verbal permission to speak to the caregivers and representatives has been obtained from the patient. N/A * Community resources currently utilized None * Please name any agencies selected above. NONE * Additional services required to return to the preadmission environment? No * Can the patient safely return to the preadmission environment? Yes * Has this patient been hospitalized within the prior 30 days at any hospital? No Last DP export: 11/24/18 2:14 p Patient Name: JOSE PAIGE Page [id number] at 1524 All edits/amendments must be made on the electronic document DICTATION DATE: 11/24/[address]: AINSLEY 11/24/18 1524 RPT#: [id number] DC DATE:11/24/18 STATUS: DIS IN [facility] [address] [place] [address] END OF REPORT
== END 2018-11-24 12:45 | disposition home or self-care (01) ==
LOC: D.ER 19:29 → D.M2 22:42 → OBSVTIME 22:42 → D.M2 22:42
PROVIDERS: Family Medicine; ADMIT Family Medicine
DX: I25.110 Atherosclerotic heart disease of native coronary artery with unstable angina pectoris (principal); I10 Essential (primary) hypertension; R51 Headache; N17.9 Acute kidney failure, unspecified

== ENCOUNTER 2019-01-25 19:39 | Emergency (ER) | payer MEDICAID ==
[~2019-01-25] VITALS: Ht 167.6 cm; Wt 98.0 kg
[~2019-01-25 19:39] MED LIST changes: +LISINOPRIL10 MG PO; +PLAVIX75 MG PO; +PROTONIX40 MG PO
[2019-01-25 19:43] VITALS: Ht 167.6 cm; Wt 98.0 kg
[2019-01-25 20:01] LABS: BASOPHILS 0.4 % (0-2); EOSINOPHILS 2.4 % (0-7); HEMATOCRIT 45.4 % (36.0-48.0); HEMOGLOBIN 16.3 g/dL (12-16); IMMATURE GRANULOCYTES 0.2 % (0-5); MCH 31.5 pg (26.0-34.0); MCHC 35.9 g/dL (31.0-37.0); MCV 87.6 fL (80.0-100.0); MEAN PLATELET VOLUME 11.7 fL (7.4-10.4); MONOCYTES 7.4 % (2-11); NEUTROPHILS 69.6 % (40-80); PLATELET COUNT 214 10x3/uL (130-400); RBC 5.18 10x6/uL (4.00-5.40); RDW 13.9 % (11.5-14.5); WBC 12.4 10x3/uL (4.8-10.8)
[2019-01-25 20:20] LABS: ALBUMIN 4.1 g/dL (3.4-5.0); ALKALINE PHOSPHATASE 74 U/L (46-116); ALT (SGPT) 22 U/L (10-68); BILIRUBIN - TOTAL 0.28 mg/dL (0.2-1.3); CALC OSMOLALITY 283 mosm/kg (275-300); CALCIUM 9.4 mg/dL (8.5-10.1); CARBON DIOXIDE 30.3 mmol/L (21.0-32.0); CHLORIDE - SERUM 96 mmol/L (98-107); CREATININE - SERUM 1.5 mg/dL (0.6-1.3); GLUCOSE 99 mg/dL (74-106); POTASSIUM - SERUM 3.3 mmol/L (3.5-5.1); PROTEIN - SERUM 8.4 g/dL (6.4-8.2); SODIUM 137 mmol/L (136-145); UREA NITROGEN 41 mg/dL (7-18); eGFR NON AFRICAN AMERICAN 37 mL/min (90-120)
[2019-01-25 20:23] LABS: AMYLASE - SERUM 53 U/L (25-115); LIPASE 212 U/L (73-393); TROPONIN-I < 0.017 ng/mL (0.000-0.060)
[2019-01-26] MEDS ORDERED: ZOFRAN ODT4 MG/UDTAB PO (00:37)
[2019-01-26 01:20] VITALS: BP 119/78
== END 2019-01-26 01:21 | disposition home or self-care (01) ==
LOC: D.ER 19:39
PROVIDERS: Family Medicine
DX: A08.4 Viral intestinal infection, unspecified (principal); E87.6 Hypokalemia